=== PATIENT | female | born 1970 | race Two or more races ===

== ENCOUNTER 2024-08-01 13:28 | Outpatient (CLI) | payer OTHER ==
[2024-08-01 13:52] LABS: Basophils # (auto) 0 10 ^3/uL (0-0.2); Basophils % (auto) 0.9 % (0.0-2.0); Eosinophils # (auto) 0.1 10 ^3/uL (0-0.8); Eosinophils % (auto) 2.7 % (0.0-7.0); Hematocrit 35.9 % (36.0-46.0); Hemoglobin 12.1 g/dL (12.2-16.2); Lymphocytes # (auto) 1.6 10 ^3/uL (0.4-5.4); Lymphocytes % (auto) 33.3 % (10.0-50.0); Mean Corpuscular Hemoglobin 31.2 pg (28.0-32.0); Mean Corpuscular Hgb Conc. 33.7 g/dL (32.0-36.0); Mean Corpuscular Volume 92.5 fL (80.0-100.0); Monocytes # (auto) 0.3 10 ^3/uL (0-1.3); Monocytes % (auto) 5.6 % (0.0-12.0); Neutrophils # (auto) 2.8 10 ^3/uL (1.6-8.6); Neutrophils % (auto) 57.5 % (37.0-80.0); Platelet Count (auto) 184 10^3/uL (140-450); Red Blood Cells 3.89 10^6/uL (4.0-5.20); Red Cell Distribution Width 16.1 % (11.8-14.3); White Blood Cell 4.9 10^3/uL (4.4-10.8)
[2024-08-01 14:10] LABS: Alanine Aminotransferase 34 U/L (7-40); Albumin 4.8 g/dL (3.2-4.8); Alkaline Phosphatase 96 U/L (46-116); Anion Gap 12 (5-15); BUN/Creatinine Ratio 5.6 (10.0-20.0); Carbon Dioxide 27 mmol/L (20-31); Chloride 104 mmol/L (98-107); Potassium 3.8 mmol/L (3.5-5.1); Sodium 143 mmol/L (136-145); Total Protein 7.6 g/dL (5.7-8.2)
[2024-08-01 14:11] LABS: Aspartate Aminotransferase 41 U/L (<34); Bilirubin, Total 0.8 mg/dL (0.2-1.0); Blood Urea Nitrogen 7 mg/dL (9-23); Calcium 10.8 mg/dL (8.7-10.4); Cholesterol 278 mg/dL (< 200); Glucose 110 mg/dL (74-106); HDL Cholesterol 62 mg/dL (40-59); LDL Cholesterol 181 mg/dL (< 100); Triglycerides 196 mg/dL (< 150)
[2024-08-01 14:24] LABS: Free T4 (Free Thyroxine) 0.31 ng/dL (0.89-1.76)
[2024-08-01 14:35] LABS: Erythrocyte Sedimentation Rate 31 mm/hr (0-20)
== END 2024-08-01 17:00 | disposition home or self-care (01) ==
LOC: LAB 13:28
PROVIDERS: ATTEND Internal Medicine
DX: E11.9 Type 2 diabetes mellitus without complications (principal)
CPT/HCPCS: 36415; 80053; 80061; 82607; 83036; 84439; 84443; 85025; 85652

== ENCOUNTER 2024-11-03 08:03 | Outpatient (CLI) | payer OTHER ==
[2024-11-03 08:34] LABS: Hematocrit 32.0 % (36.0-46.0); Hemoglobin 10.8 g/dL (12.2-16.2); Mean Corpuscular Hemoglobin 31.5 pg (28.0-32.0); Mean Corpuscular Volume 93.6 fL (80.0-100.0); Nucleated Red Blood Cells % 0.1 %
[2024-11-03 08:48] LABS: Calcium 9.8 mg/dL (8.7-10.4)
[2024-11-03 08:53] LABS: Triglycerides 82.0 mg/dL (< 150)
[2024-11-03 08:55] LABS: Cholesterol 141.0 mg/dL (< 200); HDL Cholesterol 55.0 mg/dL (40-59)
== END 2024-11-03 17:00 | disposition home or self-care (01) ==
LOC: LAB 08:03
PROVIDERS: ATTEND Internal Medicine
DX: E11.9 Type 2 diabetes mellitus without complications (principal); E78.00 Pure hypercholesterolemia, unspecified
CPT/HCPCS: 36415; 80061; 82310; 83036; 84439; 84443; 85025